=== PATIENT | female | born 1945 | race Caucasian/White ===

== ENCOUNTER 2016-08-13 00:55 | Inpatient (IN) | payer MEDICARE, OTHER ==
[~2016-08-13] VITALS: Ht 152.4 cm; Wt 108.8 kg
[2016-08-13] MEDS ORDERED: SODIUM CHLORIDE 0.9% 1,000 ML IV ONE (01:14)
[2016-08-13] MEDS ORDERED: GLIP5TAB10 PO (01:28)
[2016-08-13] MEDS ORDERED: FURO-93 PO (01:28)
[2016-08-13] MEDS ORDERED: ASPI-496 PO (01:28)
[2016-08-13] MEDS ORDERED: LOSA50TA6 PO (01:28)
[2016-08-13] MEDS ORDERED: PRAV40TA2 PO (01:28)
[2016-08-13] MEDS ORDERED: CHOL2000 PO (01:28)
[2016-08-13] MEDS ORDERED: ONDANSETRON 2MG/ML, 2ML IVPush ONE (01:30)
[2016-08-13] MEDS ORDERED: MORPHINE SULFATE 4 MG/ML, 1ML IVPush PRN (01:30)
[2016-08-13] MEDS ORDERED: CEFOTETAN PMX 1GM/50ML 50 ML IV ONE (01:30)
[2016-08-13] MEDS ORDERED: CEFOTETAN PMX 1GM/50ML 50 ML ONE (01:32)
[2016-08-13] MEDS ORDERED: MIDAZOLAM 1 MG/ML, 2ML ONE (02:05)
[2016-08-13] MEDS ORDERED: FENTANYL PF 250 MCG/5ML ONE (02:05)
[2016-08-13 02:28] LABS: BLOOD UREA NITROGEN 80 mg/dL (7-18)
[2016-08-13] MEDS ORDERED: SODIUM CHLORIDE 0.9% 1,000 ML IV SCH (02:42)
[2016-08-13] MEDS ORDERED: TRAZODONE 50MG TABLET PO PRN (03:00)
[2016-08-13] MEDS ORDERED: BISACODYL 10 MG SUPP PR PRN (03:00)
[2016-08-13] MEDS ORDERED: ONDANSETRON 2MG/ML, 2ML IVPush PRN ×2 (03:00→04:00)
[2016-08-13] MEDS ORDERED: morphine SULFATE 10 MG/ML, 1ML IVPush PRN (03:00)
[2016-08-13] MEDS ORDERED: hydrALAzine 20 MG/ML, 1ML IVPush PRN (03:00)
[2016-08-13] MEDS ORDERED: DOCUSATE 100 MG CAPSULE PO PRN (03:00)
[2016-08-13] MEDS: NICOTINE 14MG/24 HR PATCH.TD24 TD SCH (03:00)
[2016-08-13] MEDS ORDERED: ACETAMINOPHEN 325 MG TABLET PO PRN (03:00)
[2016-08-13] MEDS ORDERED: POLYETHYLENE GLYCOL 17 GM PACKET PO PRN (03:00)
[2016-08-13] MEDS ORDERED: OXYcodone 5 MG/5 ML ORAL.SOL UDC PO PRN ×3 (03:30→04:38)
[2016-08-13] MEDS ORDERED: INSULIN SINGLE DOSE, ER SQ-INSULIN ONE (03:39)
[2016-08-13] MEDS ORDERED: MEPERIDINE/PF 25MG/0.5ML IVPush PRN (04:00)
[2016-08-13] MEDS ORDERED: hydrALAzine 20 MG/ML, 1ML IV PRN (04:00)
[2016-08-13] MEDS ORDERED: PROMETHAZINE 25 MG/ML, 1ML IV PRN (04:00)
[2016-08-13] MEDS ORDERED: LABETALOL 5MG/ML, 20ML IV PRN (04:00)
[2016-08-13] MEDS ORDERED: HYDROmorphone 1 MG/ML, 1ML IV PRN (04:00)
[2016-08-13] MEDS ORDERED: FENTANYL PF 100 MCG/2ML IV PRN (04:00)
[2016-08-13 05:43] VITALS: BP 134/61
[2016-08-13] MEDS ORDERED: INSULIN ASPART 100 UNITS/ML, PEN SQ-INSULIN SCH (07:00)
[2016-08-13] MEDS: INSULIN REGULAR 100 UNITS/ML, 3ML VIAL SQ-INSULIN SCH ×4 (08:10→21:00)
[2016-08-13] MEDS: INSULIN DETEMIR 100 UNITS/ML, PEN SQ-INSULIN SCH ×2 (08:11→19:54)
[2016-08-13] MEDS: ASPIRIN 81 MG TABLET EC PO SCH (08:12)
[2016-08-13] MEDS ORDERED: PHENYLEPHRINE 10 MG/ML ONE (08:46)
[2016-08-13] MEDS ORDERED: ROCURONIUM 10 MG/ML ONE (08:46)
[2016-08-13] MEDS ORDERED: NEOSTIGMINE 1 MG/ML, 10ML ONE (08:46)
[2016-08-13] MEDS ORDERED: GLYCOPYRROLATE 0.2MG/1ML ONE (08:46)
[2016-08-13] MEDS ORDERED: PROPOFOL 10 MG/ML, 20ML ONE (08:46)
[2016-08-13] MEDS ORDERED: CALCIUM CARBONATE 500 MG TAB.CHEW PO PRN (11:00)
[2016-08-13] MEDS ORDERED: VANCOMYCIN PMX 1GM/200ML 200 ML IVPB SCH (15:30)
[2016-08-13] MEDS ORDERED: VANCOMYCIN PMX 1GM/200ML 200 ML IVPB PRN (15:31)
[2016-08-13] MEDS: PRAVASTATIN 40 MG TABLET PO SCH (21:36)
[2016-08-14] MEDS: NICOTINE 14MG/24 HR PATCH.TD24 TD SCH ×2 (03:00→22:28)
[2016-08-14 04:29] LABS: ASPARTATE AMINO TRANSFERASE 7 U/L (15-37); BLOOD UREA NITROGEN 85 mg/dL (7-18)
[2016-08-14] MEDS: INSULIN REGULAR 100 UNITS/ML, 3ML VIAL SQ-INSULIN SCH ×4 (07:17→22:27)
[2016-08-14] MEDS ORDERED: MIDAZOLAM 1 MG/ML, 5ML ONE (07:45)
[2016-08-14] MEDS ORDERED: VANCOMYCIN PMX 1GM/200ML 200 ML ONE (07:45)
[2016-08-14] MEDS ORDERED: FENTANYL PF 100 MCG/2ML ONE (07:45)
[2016-08-14] MEDS ORDERED: LIDOCAINE 2%, 20ML ONE (07:45)
[2016-08-14] MEDS ORDERED: VANCOMYCIN 500 MG ONE (07:45)
[2016-08-14] MEDS: ASPIRIN 81 MG TABLET EC PO SCH (11:00)
[2016-08-14] MEDS: INSULIN DETEMIR 100 UNITS/ML, PEN SQ-INSULIN SCH ×2 (11:00→22:26)
[2016-08-14] MEDS ORDERED: VISIPAQUE 270 MG/ML, 50ML BOTTLE ONE (16:00)
[2016-08-14] MEDS: ALBUMIN HUMAN 25% 50 ML IV PRN (18:37)
[2016-08-14] MEDS ORDERED: ALBUMIN HUMAN 25% 100 ML IV PRN (20:30)
[2016-08-14 21:29] VITALS: BP 127/70
[2016-08-14] MEDS: PRAVASTATIN 40 MG TABLET PO SCH (22:27)
[2016-08-14 22:37] VITALS: BP 99/64
[2016-08-15 03:13] VITALS: BP 140/80
[2016-08-15 06:11] LABS: BLOOD UREA NITROGEN 37 mg/dL (7-18)
[2016-08-15 07:15] VITALS: BP 141/83
[2016-08-15] MEDS: INSULIN REGULAR 100 UNITS/ML, 3ML VIAL SQ-INSULIN SCH ×4 (08:15→20:29)
[2016-08-15] MEDS: INSULIN DETEMIR 100 UNITS/ML, PEN SQ-INSULIN SCH ×2 (08:16→20:30)
[2016-08-15] MEDS: ASPIRIN 81 MG TABLET EC PO SCH (08:16)
[2016-08-15 08:51] LABS: HEP B SURF. AB 10.7 mIU/mL (0.0-10.0)
[2016-08-15 13:15] VITALS: BP 138/80
[2016-08-15 20:10] VITALS: BP 171/93
[2016-08-15] MEDS: PRAVASTATIN 40 MG TABLET PO SCH (20:28)
[2016-08-16] MEDS: NICOTINE 14MG/24 HR PATCH.TD24 TD SCH (03:58)
[2016-08-16 03:59] VITALS: BP 149/84
[2016-08-16 05:07] LABS: BLOOD UREA NITROGEN 47 mg/dL (7-18)
[2016-08-16 07:01] VITALS: BP 168/78
[2016-08-16] MEDS ORDERED: PROTAMINE SULFATE 10 MG/ML, 5ML ONE ×2 (07:26→10:17)
[2016-08-16] MEDS ORDERED: HEPARIN 1,000 UNITS/ML, 10ML ONE (07:26)
[2016-08-16] MEDS ORDERED: BUPIVACAINE/PF 0.5% ONE ×2 (07:26→09:13)
[2016-08-16] MEDS ORDERED: THROMBIN 5,000 UNIT VIAL TP ONE (07:27)
[2016-08-16] MEDS ORDERED: FENTANYL PF 250 MCG/5ML ONE (07:30)
[2016-08-16] MEDS: INSULIN DETEMIR 100 UNITS/ML, PEN SQ-INSULIN SCH ×2 (08:00→20:37)
[2016-08-16] MEDS: INSULIN REGULAR 100 UNITS/ML, 3ML VIAL SQ-INSULIN SCH ×4 (08:00→20:38)
[2016-08-16] MEDS ORDERED: BUPIVACAINE/PF 0.5% INFIL ONE ×2 (08:35→09:55)
[2016-08-16] MEDS ORDERED: OXYcodone 5 MG/5 ML ORAL.SOL UDC PO PRN (10:30)
[2016-08-16] MEDS ORDERED: FENTANYL PF 100 MCG/2ML IV PRN (10:30)
[2016-08-16] MEDS ORDERED: hydrALAzine 20 MG/ML, 1ML IV PRN (10:30)
[2016-08-16] MEDS ORDERED: HYDROmorphone 1 MG/ML, 1ML IV PRN (10:30)
[2016-08-16] MEDS ORDERED: METOPROLOL 1 MG/ML, 5ML IV PRN (10:30)
[2016-08-16] MEDS ORDERED: ACETAMINOPHEN 325 MG TABLET PO PRN (10:30)
[2016-08-16] MEDS ORDERED: ALBUTEROL SULFATE 2.5 MG/3 ML NPPB PRN (10:30)
[2016-08-16] MEDS ORDERED: OXYcodone 5 MG/5 ML ORAL.SOL UDC ONE (10:31)
[2016-08-16 12:20] VITALS: BP 143/83
[2016-08-16] MEDS: ASPIRIN 81 MG TABLET EC PO SCH (15:29)
[2016-08-16 18:59] VITALS: BP 119/68
[2016-08-16] MEDS: PRAVASTATIN 40 MG TABLET PO SCH (20:31)
[2016-08-17 01:35] VITALS: BP 133/74
[2016-08-17] MEDS: NICOTINE 14MG/24 HR PATCH.TD24 TD SCH (03:00)
[2016-08-17 07:02] VITALS: BP 140/63
[2016-08-17] MEDS: ASPIRIN 81 MG TABLET EC PO SCH (08:37)
[2016-08-17] MEDS: INSULIN DETEMIR 100 UNITS/ML, PEN SQ-INSULIN SCH ×2 (08:38→20:39)
[2016-08-17] MEDS: INSULIN REGULAR 100 UNITS/ML, 3ML VIAL SQ-INSULIN SCH ×4 (08:39→20:39)
[2016-08-17] MEDS: ALBUMIN HUMAN 25% 50 ML IV PRN (12:15)
[2016-08-17 14:53] VITALS: BP 138/72
[2016-08-17 19:10] VITALS: BP 124/68
[2016-08-17] MEDS: PRAVASTATIN 40 MG TABLET PO SCH (20:39)
[2016-08-18] MEDS: NICOTINE 14MG/24 HR PATCH.TD24 TD SCH (03:00)
[2016-08-18 05:48] LABS: BLOOD UREA NITROGEN 31 mg/dL (7-18)
[2016-08-18] MEDS: INSULIN REGULAR 100 UNITS/ML, 3ML VIAL SQ-INSULIN SCH ×4 (08:30→20:16)
[2016-08-18] MEDS: INSULIN DETEMIR 100 UNITS/ML, PEN SQ-INSULIN SCH ×2 (09:04→20:16)
[2016-08-18] MEDS: ASPIRIN 81 MG TABLET EC PO SCH (09:04)
[2016-08-18 13:18] VITALS: BP 135/75
[2016-08-18 18:49] VITALS: BP 124/70
[2016-08-18] MEDS: PRAVASTATIN 40 MG TABLET PO SCH (20:09)
[2016-08-19 02:45] VITALS: BP 123/67
[2016-08-19] MEDS: NICOTINE 14MG/24 HR PATCH.TD24 TD SCH (02:46)
[2016-08-19 06:45] VITALS: BP 131/75
[2016-08-19] MEDS: INSULIN REGULAR 100 UNITS/ML, 3ML VIAL SQ-INSULIN SCH ×4 (07:00→21:00)
[2016-08-19] MEDS: ASPIRIN 81 MG TABLET EC PO SCH (08:57)
[2016-08-19] MEDS: INSULIN DETEMIR 100 UNITS/ML, PEN SQ-INSULIN SCH ×2 (08:57→21:00)
[2016-08-19] MEDS: ALBUMIN HUMAN 25% 50 ML IV PRN (10:00)
[2016-08-19 13:30] VITALS: BP 120/77
[2016-08-19 20:00] VITALS: BP_SYST 126; BP_SYST 130; BP_DIAS 75; BP_DIAS 77
[2016-08-19] MEDS: PRAVASTATIN 40 MG TABLET PO SCH (20:59)
[2016-08-20 02:00] VITALS: BP 123/69
[2016-08-20] MEDS: INSULIN REGULAR 100 UNITS/ML, 3ML VIAL SQ-INSULIN SCH ×2 (07:00→12:22)
[2016-08-20] MEDS: INSULIN DETEMIR 100 UNITS/ML, PEN SQ-INSULIN SCH (07:30)
[2016-08-20 07:50] VITALS: BP 115/51
[2016-08-20] MEDS: ASPIRIN 81 MG TABLET EC PO SCH (08:31)
[2016-08-20] MEDS: NICOTINE 14MG/24 HR PATCH.TD24 TD SCH (08:32)
[2016-08-20] MEDS ORDERED: TRAZ50TA18 PO (13:06)
[2016-08-20] MEDS ORDERED: INSU100I28 SQ-INSULIN ×2 (13:06)
[2016-08-20] MEDS ORDERED: NICO1PAT4 TD (13:06)
[2016-08-20] MEDS ORDERED: OXYC5SOL8 PO (13:06)
[2016-08-20 14:00] VITALS: BP 105/59
[2016-08-20] MEDS ORDERED: INSULIN DETEMIR 100 UNITS/ML, PEN SQ-INSULIN SCH (17:00)
[2016-08-21] MEDS ORDERED: INSULIN DETEMIR 100 UNITS/ML, PEN SQ-INSULIN SCH (07:30)
[2016-08-29] MEDS ORDERED: FURO80TA3 PO (11:20)
== END 2016-08-20 15:16 | DRG 853 ==
LOC: ED 01:19 → EDIP 02:42 → CCU 04:29 → 5SO 08-14 14:01 → 4EST 08-15 17:53
PROVIDERS: ADMIT Internal Medicine; ATTEND Internal Medicine
PROC: 0WQF0ZZ Repair Abdominal Wall, Open Approach (ICD-10-PCS; 2016-08-13)
PROC: 0DNL0ZZ Release Transverse Colon, Open Approach (ICD-10-PCS; principal; 2016-08-13 01:45)
PROC: 02H63JZ Insertion of Pacemaker Lead into Right Atrium, Percutaneous Approach (ICD-10-PCS; 2016-08-14)
PROC: 0JH606Z Insertion of Pacemaker, Dual Chamber into Chest Subcutaneous Tissue and Fascia, Open Approach (ICD-10-PCS; 2016-08-14)
PROC: 5A1D60Z (ICD-10-PCS; 2016-08-14)
PROC: 02HK3JZ Insertion of Pacemaker Lead into Right Ventricle, Percutaneous Approach (ICD-10-PCS; 2016-08-14)
PROC: 02HV33Z Insertion of Infusion Device into Superior Vena Cava, Percutaneous Approach (ICD-10-PCS; 2016-08-14)
PROC: B5181ZA Fluoroscopy of Superior Vena Cava using Low Osmolar Contrast, Guidance (ICD-10-PCS; 2016-08-14)
PROC: 03180ZD Bypass Left Brachial Artery to Upper Arm Vein, Open Approach (ICD-10-PCS; 2016-08-16)
PROC: 03CY0ZZ Extirpation of Matter from Upper Artery, Open Approach (ICD-10-PCS; 2016-08-16)
PROC: 037Y0ZZ Dilation of Upper Artery, Open Approach (ICD-10-PCS; 2016-08-16)
DX: A41.9 Sepsis, unspecified organism (principal); N18.6 End stage renal disease; I46.9 Cardiac arrest, cause unspecified; I50.33 Acute on chronic diastolic (congestive) heart failure; K42.0 Umbilical hernia with obstruction, without gangrene; Z68.42 Body mass index [BMI] 45.0-49.9, adult; E87.1 Hypo-osmolality and hyponatremia; I13.2 Hypertensive heart and chronic kidney disease with heart failure and with stage 5 chronic kidney disease, or end stage renal disease; K56.7 Ileus, unspecified; R17 Unspecified jaundice; T82.868A Thrombosis due to vascular prosthetic devices, implants and grafts, initial encounter; I49.5 Sick sinus syndrome; Z99.2 Dependence on renal dialysis; E11.22 Type 2 diabetes mellitus with diabetic chronic kidney disease; D63.1 Anemia in chronic kidney disease; D72.828 Other elevated white blood cell count; E11.65 Type 2 diabetes mellitus with hyperglycemia; E66.01 Morbid (severe) obesity due to excess calories; E78.5 Hyperlipidemia, unspecified; F17.210 Nicotine dependence, cigarettes, uncomplicated; I45.5 Other specified heart block; Y83.2 Surgical operation with anastomosis, bypass or graft as the cause of abnormal reaction of the patient, or of later complication, without mention of misadventure at the time of the procedure; Z88.0 Allergy status to penicillin; Z88.1 Allergy status to other antibiotic agents
CPT/HCPCS: 33208; 36005; 36415; 36556; 71010; 76937; 77001; 80048; 80053; 80069; 82040; 82330; 82803; 82947; 82962; 83605; 84100; 84132; 84295; 85014; 85025; 85610; 85730; 86704; 86706; 86850; 86900; 87040; 87081; 87340; 93005; 93306; 99156; 99157; 99285; C1779; C1785; C1892; C1894; J1644; J1815; J2250; J2704; J2710; J2720; J3010; J3370; J3490; P9047; Q9966; C1751; C1757; C1769; J0360; J1642; J2370; Q9967; S0074